=== PATIENT | male | born 1990 | race Caucasian/White ===

== ENCOUNTER 2024-03-27 13:29 | Emergency (ER) | payer OTHER ==
[~2024-03-27] VITALS: Ht 180.3 cm; Wt 90.7 kg
[2024-03-27 13:30] VITALS: BP_SYST 123; PULSE 81; RESP 18; TEMP 97.3; O2SAT 99
[2024-03-27 14:55] LABS: BASOPHILS # (AUTO) 0.1 K/uL (0.0-0.2); BASOPHILS % (AUTO) 0.5 % (0.0-2.0); EOSINOPHILS # (AUTO) 0.1 K/uL (0.0-0.4); EOSINOPHILS % (AUTO) 0.8 % (0.0-4.0); HEMATOCRIT 41.8 % (36-54); LYMPHOCYTES # (AUTO) 1.6 K/uL (1.0-5.5); LYMPHOCYTES % (AUTO) 16.7 % (20.5-51.5); MEAN CORPUSCULAR HEMOGLOBIN 30 pg (27-31); MEAN CORPUSCULAR HGB CONC 34 % (32-36); MEAN CORPUSCULAR VOLUME 88 fL (79.0-98.0); MONOCYTES # (AUTO) 0.6 K/uL (0.0-1.0); MONOCYTES % (AUTO) 6.4 % (1.7-9.3); NEUTROPHILS # (AUTO) 7.4 K/uL (1.8-7.7); NEUTROPHILS % (AUTO) 75.6 % (40.0-70.0); PLATELET COUNT (AUTO) 231 K/uL (130-430); RED BLOOD CELL COUNT(AUTO) 4.74 MIL/uL (4.2-6.2); RED CELL DISTRIBUTION WIDTH 12.9 % (9.0-15.0); WHITE BLOOD COUNT (AUTO) 9.8 K/uL (4.8-10.8)
[2024-03-27] MEDS: ONDANSETRON HCL 4 MG/2 ML VIAL IVP ONE (14:55)
[2024-03-27] MEDS: NACL 0.9% 1,000 ML IV ONE ×2 (15:08→17:16)
[2024-03-27 15:24] LABS: ALBUMIN 4.4 g/dL (3.4-4.8); BILIRUBIN,DIRECT 0.1 mg/dL (0.0-0.3); CALCIUM 9.3 mg/dL (8.4-11.0); CREATININE 0.92 mg/dL (0.55-1.30); POTASSIUM 3.8 mmol/L (3.5-5.1); TOTAL BILIRUBIN 0.6 mg/dL (0.0-1.0); TOTAL PROTEIN, SERUM 8.8 g/dL (6.4-8.3)
[2024-03-27 15:52] LABS: PROTHROMBIN TIME 10.9 SECS (9.5-12.5)
[2024-03-27] MEDS ORDERED: KETOROLAC TROMETHAMINE 30 MG VIAL IVP ONE (16:15)
[2024-03-27 17:28] LABS: INFLUENZA TYPE A Negative (NEGATIVE); INFLUENZA TYPE B NEGATIVE (NEGATIVE)
[2024-03-27] MEDS: MECLIZINE HCL 25 MG TABLET (ANITVERT) PO ONE (18:00)
[2024-03-27] MEDS ORDERED: ONDA-8 TL (18:14)
[2024-03-27] MEDS ORDERED: MECL-108 PO (18:14)
[2024-03-27 18:22] VITALS: BP_SYST 133; PULSE 80; RESP 16; TEMP 97.9; O2SAT 100
== END 2024-03-27 18:22 | disposition home or self-care (01) ==
LOC: SED 13:29
DX: H83.09 Labyrinthitis, unspecified ear (principal); H81.10 Benign paroxysmal vertigo, unspecified ear; Z20.822 Contact with and (suspected) exposure to COVID-19
CPT/HCPCS: 99285; 96360; 70450; 71045; 96361; 87426; 80053; 85025; 85610; 85730; 87040; 84484; 36415; 93005; 83605; 87804 ×2; 80076; 80048; J7030; J1885; J8597